=== PATIENT | female | born 1985 | race Caucasian/White ===

== ENCOUNTER 2017-09-20 09:03 | Emergency (ER) | payer MEDICAID, OTHER ==
[~2017-09-20] VITALS: Ht 167.6 cm; Wt 61.0 kg
[~2017-09-20 09:03] MED LIST: Hydrocodone/Acetaminophen PO; IBUP600 PO; PERI8.6T PO; PREN1TAB30
[2017-09-20 09:04] VITALS: BP 147/74; PULSE 89; RESP 16; TEMP 98.1; O2SAT 98
[2017-09-20] MEDS ORDERED: SODIUM CHLORIDE 0.9% FLUSH 10 ML FLUSH IVF PRN (09:45)
--- NOTE | 2017-09-20 09:48 | PD ---
HPI Chief Complaint: Cardiac Complaint Time Seen by Provider: 09:39 Travel History International Travel<30 days: No Contact w/Intl Traveler<30days: No Traveled to known affect area: No History of Present Illness HPI 31-year-old female with no past medical history, presents here with complaints of mid substernal chest tightness since this morning. Patient states she woke up this morning with tightness in her mid substernal area. States she called her primary care physician to see if he would see her today. She reports the office told her that she needed to go to the ER. They told her that they could not give her any advice and that she would need to be seen in the ER. The patient denies any radiation. She reports it as a heavy tightness in her mid substernal area. She states it is worse with inspiration. The patient has no history of hypertension, hyperlipidemia, diabetes, family history. She does not smoke. She has no history of long car rides or plane rides. The patient has no calf tenderness or swelling. There is no history of control pill use. There is no history of trauma to her lower extremities. She has no other complaints at time of examination. PFS Past Medical History Cancer: No Cardiovascular Problems: No Endocrine: No Genitourinary: No Immune Disorder: No Implanted Vascular Access Dvce: Yes Musculoskeletal: No Neurologic: No Psychiatric: Yes Reproductive: Yes (MOLAR ) Respiratory: No Influenza Vaccination: No ?: Not : 3 Para: 2 Miscarriage: 1 Dilation and Curettage (D&C): Yes (05/2012) Past Surgical History Abdominal Surgery: Yes (LAPROSCOPIC HERNIA) Body Medical Devices: METAL RODS AND SCREWS IN RIGHT LEG Section: Yes Gynecologic Surgery: Yes (D&C) Other Surgery: Yes (R INGUINAL DAVID REP 2003) Social History Alcohol Use: No Tobacco Use: No Substance Use: No Allergies-Medications (Allergen,Severity, Reaction): Coded Allergies: No Known Allergies (Unverified , 02/07/15) Reported Meds & Prescriptions Reported Meds & Active Scripts Active No Active Prescriptions or Reported Medications Review of Systems Except as stated in HPI: all other systems reviewed are Neg General / Constitutional: No: Fever, Chills HENT: No: Headaches, Lightheadedness Cardiovascular: Positive: Chest Pain or Discomfort, No: Palpitations, Irregular Rhythm Respiratory: No: Cough, Shortness of Breath Gastrointestinal: No: Nausea, Vomiting, Abdominal Pain Genitourinary: No: Frequency, Dysuria Musculoskeletal: No: Weakness, Pain Neurologic: No: Weakness, Dizziness, Headache Physical Exam Narrative GENERAL: Well-nourished, well-developed patient. SKIN: Focused skin assessment warm/dry. HEAD: Normocephalic/atraumatic. EYES: No scleral icterus. No injection or drainage. NECK: Supple, trachea midline. CARDIOVASCULAR: Regular rate and rhythm without murmurs, gallops, or rubs. RESPIRATORY: Breath sounds equal bilaterally. No accessory muscle use. GASTROINTESTINAL: Abdomen soft, non-tender, nondistended. MUSCULOSKELETAL: No cyanosis, or edema. No calf tenderness, Homans sign. No palpable cords in her popliteal area. NEUROLOGICAL: Awake and alert. Cranial nerves II through XII intact. Motor grossly within normal limits. Five out of 5 muscle strength in all muscle groups. Normal speech. PSYCHIATRIC: No delusional thought processes. No hallucinations. Data Data Last Documented VS Vital Signs Date Time Temp Pulse Resp B/P (MAP) Pulse Ox O2 Delivery O2 Flow Rate FiO2 09/20/17 10:56 74 18 101/60 (74) 98 Room Air 09/20/17 09:04 98.1 Orders Orders Basic Metabolic Panel (Bmp) (09/20/17 09:38) Ckmb (Isoenzyme) Profile (09/20/17 09:38) Complete Blood Count With Diff (09/20/17 09:38) D-Dimer (09/20/17 09:38) Troponin I (09/20/17 09:38) Chest, Single Ap (09/20/17 09:38) Ecg Monitoring (09/20/17 09:38) Iv Access Insert/Monitor (09/20/17 09:38) Oximetry (09/20/17 09:38) Oxygen Administration (09/20/17 09:38) Sodium Chloride 0.9% Flush (Ns Flush) (09/20/17 09:45) Electrocardiogram (09/20/17:23) Labs Laboratory Tests Test 09/20/17 09:51 White Blood Count 5.0 TH/MM3 Red Blood Count 4.40 MIL/MM3 Hemoglobin 13.5 GM/DL Hematocrit 38.9 % Mean Corpuscular Volume 88.3 FL Mean Corpuscular Hemoglobin 30.7 PG Mean Corpuscular Hemoglobin Concent 34.8 % Red Cell Distribution Width 12.1 % Platelet Count 265 TH/MM3 Mean Platelet Volume 9.0 FL Neutrophils (%) (Auto) 55.9 % Lymphocytes (%) (Auto) 31.9 % Monocytes (%) (Auto) 8.7 % Eosinophils (%) (Auto) 2.7 % Basophils (%) (Auto) 0.8 % Neutrophils # (Auto) 2.8 TH/MM3 Lymphocytes # (Auto) 1.6 TH/MM3 Monocytes # (Auto) 0.4 TH/MM3 Eosinophils # (Auto) 0.1 TH/MM3 Basophils # (Auto) 0.0 TH/MM3 CBC Comment DIFF FINAL Differential Comment D-Dimer Quantitative (PE/DVT) 0.27 MG/L FEU Blood Urea Nitrogen 9 MG/DL Creatinine 0.74 MG/DL Random Glucose 92 MG/DL Calcium Level 8.8 MG/DL Sodium Level 139 MEQ/L Potassium Level 3.6 MEQ/L Chloride Level 106 MEQ/L Carbon Dioxide Level 29.3 MEQ/L Anion Gap 4 MEQ/L Estimat Glomerular Filtration Rate 92 ML/MIN Total Creatine Kinase 78 U/L Troponin I LESS THAN 0.02 NG/ML MDM Medical Decision Making Medical Screen Exam Complete: Yes Emergency Medical Condition: Yes Differential Diagnosis Pleurisy versus muscular skeletal pain versus ACS versus PE Narrative Course 31-year-old female presents with atypical chest pain. Patient reports pressure- like sensation in her substernal area. Patient has no cardiac risk factors. There is no PE risk factors. EKG and cardiac enzymes are negative for acute process. D-dimer is normal. I discussed with the patient that this is likely musculoskeletal in etiology. She is instructed to use Motrin as needed every 6- 8 hours. She is instructed to take it with food. She is instructed to follow- up with her primary care doctor as needed. She is also instructed to avoid heavy lifting or working out until the discomfort resolves. Diagnosis Primary Impression: Atypical chest pain Additional Instructions: Moist heat as needed. Ibuprofen every 6-8 hours. Take with food. Return if feeling worse. Thank you for choosing [facility], we know you have a choice in healthcare. Scripts No Active Prescriptions or Reported Meds Condition: Guillermo Walden MD Sep 20, 2017 09:48
[2017-09-20 10:00] VITALS: PULSE 62; RESP 20; O2SAT 100
[2017-09-20 10:24] LABS: AUTOMATED NEUTROPHIL # 2.8 TH/MM3 (1.8-7.7); BASOPHIL % 0.8 % (0.0-2.0); EOSINOPHIL # 0.1 TH/MM3 (0-0.4); EOSINOPHIL % 2.7 % (0.0-4.0); HEMATOCRIT 38.9 % (35.0-46.0); HEMOGLOBIN 13.5 GM/DL (11.6-15.3); LYMPH % 31.9 % (9.0-44.0); LYMPHOCYTE # 1.6 TH/MM3 (1.0-4.8); MEAN CELL VOLUME 88.3 FL (80.0-100.0); MEAN CORPUSCULAR HEMOGLOBIN 30.7 PG (27.0-34.0); MEAN CORPUSCULAR HGB CONC 34.8 % (32.0-36.0); MONO % 8.7 % (0.0-8.0); MONOCYTE # 0.4 TH/MM3 (0-0.9); NEUT % 55.9 % (16.0-70.0); PLATELET COUNT 265 TH/MM3 (150-450); RED CELL DISTRIBUTION WIDTH 12.1 % (11.6-17.2)
--- NOTE | 2017-09-20 10:46 | RADRPT ---
EXAM DATE/TIME: 09/20/2017 10:18 [facility] COMPARISON: No previous studies available for comparison. INDICATIONS : Pain in middle of chest for one day, short of breath MEDICAL HISTORY : None. SURGICAL HISTORY : None. ENCOUNTER: Initial ACUITY: 1 day PAIN SCORE: 5/10 LOCATION: Bilateral chest FINDINGS: A single view of the chest demonstrates the lungs to be symmetrically aerated without evidence of mas s, infiltrate or effusion. The cardiomediastinal contours are unremarkable. Osseous structures are intact. CONCLUSION: The lungs are clear. Marquise Martinez MD on September 20, 2017 at 10:45 Board Certified Radiologist. This report was verified electronically.
[2017-09-20 10:52] LABS: BICARBONATE 29.3 MEQ/L (21.0-32.0); BLOOD UREA NITROGEN 9 MG/DL (7-18); CALCIUM 8.8 MG/DL (8.5-10.1); CHLORIDE 106 MEQ/L (98-107); CREATININE 0.74 MG/DL (0.50-1.00); GLOMERULAR FILTRATION RATE 92 ML/MIN (>89); GLUCOSE,RANDOM 92 MG/DL (74-106); SODIUM (NA) 139 MEQ/L (136-145)
[2017-09-20 10:56] VITALS: BP 101/60; PULSE 74; RESP 18; O2SAT 98
[2017-09-20 10:58] LABS: TROPONIN I LESS THAN 0.02 NG/ML (0.02-0.05)
--- NOTE | 2017-09-20 13:53 | EKG ---
Date Performed: 09/20/2017 Time Performed: 09:23:21 PTAGE: 31 years EKG: Sinus rhythm NORMAL ECG NO PREVIOUS TRACING 09/19/2017 0923 DOCTOR: Shirlene Sheppard Interpretating Date/Time 09/20/2017 13:51:26
== END 2017-09-20 12:04 | disposition home or self-care (01) ==
LOC: NEPE 09:03
DX: R07.89 Other chest pain (principal)
CPT/HCPCS: 71045; 80048; 82550; 84484; 85025; 85379; 93005; 99285